=== PATIENT | male | born 1990 | race African-American/Black ===

== ENCOUNTER 2017-09-11 07:20 | Emergency (ER) | payer MEDICAID, OTHER ==
[~2017-09-11] VITALS: Ht 167.6 cm; Wt 63.0 kg
[2017-09-11 07:38] VITALS: BP 109/82
== END 2017-09-11 08:13 | disposition home or self-care (01) ==
LOC: EMS 07:22
DX: S39.012A Strain of muscle, fascia and tendon of lower back, initial encounter (principal); V49.40XA Driver injured in collision with unspecified motor vehicles in traffic accident, initial encounter; Y93.89 Activity, other specified; Y92.89 Other specified places as the place of occurrence of the external cause; Y99.8 Other external cause status
CPT/HCPCS: 99283